=== PATIENT | female | born 1950 | race American Indian/Alaskan Native ===

== ENCOUNTER 2018-06-07 15:28 | Emergency (ER) | payer MEDICARE ==
[2018-06-07 15:35] VITALS: BMI 27.3
--- NOTE | 2018-06-07 15:52 | ED PDOC ---
Arrival/HPI - General Historian: Patient - General Chief Complaint: Psychiatric Evaluation Time Seen by Provider: 06/07/18 15:32 - History of Present Illness Narrative History of Present Illness (Text): 06/07/18 15:58 68yo female with pmhx of schizophrenia bib EMS for psychiatric evaluation. Per the EMS the called because patient is having worsening auditory hallucination. Patient in ED denies auditory/visual hallucination, SI/HI, any somatic complaint. (Toño Grimm) Past Medical History - Provider Review Nursing Documentation Reviewed: Yes - Infectious Disease Hx of Infectious Diseases: None - Tetanus Immunization Tetanus Immunization: Unknown - Cardiac Hx Hypertension: Yes - Pulmonary Hx Respiratory Disorders: No - Neurological Hx Paralysis: No - HEENT Hx HEENT Disorder: No - Renal Hx Renal Disorder: No - Endocrine/Metabolic Hx Endocrine Disorders: No - Hematological/Oncological Hx Blood Transfusions: No Hx Blood Transfusion Reaction: No - Integumentary Hx Dermatological Disorder: No - Musculoskeletal/Rheumatological Hx Musculoskeletal Disorders: No - Gastrointestinal Hx Gastrointestinal Disorders: No Hx Gastroesophageal Reflux: Yes - Genitourinary/Gynecological Hx Genitourinary Disorders: No - Psychiatric Hx Anxiety: Yes Hx Physical Abuse: No Hx Schizophrenia: Yes Hx Substance Use: No - Surgical History Hx Hysterectomy: Yes - Anesthesia Hx Anesthesia: No Hx Anesthesia Reactions: No Hx Malignant Hyperthermia: No - Suicidal Assessment Feels Threatened In Home Enviroment: No Family/Social History - Physician Review Nursing Documentation Reviewed: Yes Family/Social History: Unknown Family HX Smoking Status: Never Smoked Hx Alcohol Use: No Hx Substance Use: No Hx Substance Use Treatment: No Allergies/Home Meds Allergies/Adverse Reactions: Allergies piroxicam Adverse Reaction (Severe, Verified 06/28/16 16:00) ANAPHYLAXIS Review of Systems - Physician Review All systems were reviewed & negative as marked: Yes - Review of Systems Constitutional: Normal Eyes: Normal ENT: Normal Respiratory: Normal Cardiovascular: Normal Gastrointestinal: Normal Genitourinary Female: Normal Musculoskeletal: Normal Skin: Normal Neurological: Normal Endocrine: Normal Hemo/Lymphatic: Normal Psychiatric: Other (Hallucination) Physical Exam Vital Signs Reviewed: Yes Temperature: Afebrile Blood Pressure: Normal Pulse: Regular Respiratory Rate: Normal Appearance: Positive for: Well-Appearing, Non-Toxic, Comfortable Pain Distress: None Mental Status: Positive for: Alert and Oriented X 3 - Systems Exam Head: Present: Atraumatic, Normocephalic Pupils: Present: PERRL Extroacular Muscles: Present: EOMI Conjunctiva: Present: Normal Mouth: Present: Moist Mucous Membranes Neck: Present: Normal Range of Motion Respiratory/Chest: Present: Clear to Auscultation, Good Air Exchange. No: Respiratory Distress, Accessory Muscle Use Cardiovascular: Present: Regular Rate and Rhythm, Normal S1, S2. No: Murmurs Abdomen: No: Tenderness, Distention, Peritoneal Signs Back: Present: Normal Inspection Upper Extremity: Present: Normal Inspection. No: Cyanosis, Edema Lower Extremity: Present: Normal Inspection. No: Edema Neurological: Present: GCS=15, CN II-XII Intact, Speech Normal Skin: Present: Warm, Dry, Normal Color. No: Rashes Psychiatric: Present: Alert, Oriented x 3, Normal Insight, Normal Concentration Vital Signs Temp Pulse Resp BP Pulse Ox 06/07/18 21:15 98.7 F 87 16 122/67 98 06/07/18 19:05 81 16 128/71 99 06/07/18 16:56 98.6 F 86 18 125/76 98 Medical Decision Making ED Course and Treatment: 06/08/18 00:34 PT was comfortable in ED. She denied SI/HI or any somatic complaint in ED. Lab was unremarkable. she had leukocytes in her UA, but asymptomatic. she was medically cleared in ED for psych evaluation. She was seen in ED by DENNIS Wang. She DC with the psychiatrist and DC pt home for outpt f/u. (Toño Grimm) 06/10/18 11:01 I received a call from Microbiology that patient has a positive urine culture. ESBL+ E.Coli that is sensitive to Macrobid. I called the cell phone listed for the patient but it was not the patient's cell number. I called her son Ned Jaramillo who is listed. He states he takes care of his mom and she doesn't have a phone. She agreed that he be his mlt. She has no allergies to abx. Macrobid 500mg BID x 5 days called into [facility] [place] [phone]. Son Ned will pick it up [phone]. (Jose Antonio Higuera) - Lab Interpretations Microbiology Results: Microbiology Results 06/07/18 19:30 Urine,Clean Catch Urine Culture - Preliminary Escherichia Coli Lab Results: 06/07/18 16:04 06/07/18 16:04 Lab Results 06/07/18 18:58: Urine Opiates Screen Negative, Urine Methadone Screen Negative, Ur Barbiturates Screen Negative, Ur Phencyclidine Scrn Negative, Ur Amphetamines Screen Negative, U Benzodiazepines Scrn Negative, U Oth Cocaine Metabols Negative, U Cannabinoids Screen Negative 06/07/18 17:55: Urine Color Yellow, Urine Appearance Clear, Urine pH 8.0, Ur Specific [place] 1.015, Urine Protein Negative, Urine Glucose (UA) Negative, Urine Ketones Negative, Urine Blood Negative, Urine Nitrate Negative, Urine Bilirubin Negative, Urine Urobilinogen 0.2, Ur Leukocyte Esterase Moderate H, Urine RBC 0 - 2, Urine WBC 15 - 20, Ur Epithelial Cells 4 - 5, Urine Bacteria Many, Urine Other Uyeast 06/07/18 16:04: Alcohol, Quantitative < 10 06/07/18 16:04: Salicylates < 1 L, Acetaminophen < 10.0 L 06/07/18 16:04: Sodium 144, Potassium 4.2, Chloride 105, Carbon Dioxide 29, Anion Gap 15, BUN 14, Creatinine 0.7, Est GFR ( Amer) > 60, Est GFR (Non- Af Amer) > 60, Random Glucose 91, Calcium 9.5, Magnesium 2.3 H, Total Bilirubin 0.5, AST 24, ALT 24, Alkaline Phosphatase 100, Total Protein 8.1, Albumin 4.3, Globulin 3.8, Albumin/Globulin Ratio 1.1 06/07/18 16:04: WBC 8.2 D, RBC 4.24, Hgb 11.1 L, Hct 35.0 L, MCV 82.5, MCH 26.2 , MCHC 31.7, RDW 14.9 H, Plt Count 205, MPV 9.8, Gran % 67.2, Lymph % (Auto) 26.0, Logan % (Auto) 4.9, Eos % (Auto) 1.7, Baso % (Auto) 0.2, Gran # 5.48, Lymph # (Auto) 2.1, Logan # (Auto) 0.4, Eos # (Auto) 0.1, Baso # (Auto) 0.02 - RAD Interpretation Radiology Orders: 06/07/18 15:39 CHEST PORTABLE [RAD] Stat Disposition/Present on Arrival - Present on Arrival Any Indicators Present on Arrival: No History of DVT/PE: No History of Uncontrolled Diabetes: No Urinary Catheter: No History of Decub. Ulcer: No History Surgical Site Infection Following: None - Disposition Have Diagnosis and Disposition been Completed?: Yes Disposition Time: 19:30 Patient Plan: Discharge - Disposition Diagnosis: Hallucination Disposition: HOME/ ROUTINE Condition: STABLE Additional Instructions: Follow up with your doctor Return to ED for any new or worsening symptoms Referrals: [facility]] - Follow up with primary Forms: [employer] (Czech)
[2018-06-07 16:08] LABS: BASO # 0.02 K/mm3 (0.0-2.0); BASO % 0.2 % (0.0-3.0); EOS # 0.1 (0.0-0.7); EOS % 1.7 % (1.5-5.0); GRAN # 5.48 (1.4-6.5); GRAN % 67.2 % (50.0-68.0); HEMOGLOBIN 11.1 g/dL (12.0-16.0); LYMPH # 2.1 (1.2-3.4); MEAN CELL VOLUME 82.5 fl (80.0-105.0); MEAN CORPUSCULAR HEMOGLOBIN 26.2 pg (25.0-35.0); MEAN CORPUSCULAR HGB CONC 31.7 g/dl (31.0-37.0); MEAN PLATELET VOLUME 9.8 fl (7.0-11.0); MONO # 0.4 (0.1-0.6); MONO % 4.9 % (1.0-6.0); RBC 4.24 10^6/uL (3.5-6.1); RED CELL DISTRIBUTION WIDTH 14.9 % (11.5-14.5); WHITE BLOOD COUNT 8.2 10^3/ul (4.5-11.0)
--- NOTE | 2018-06-07 16:15 | RAD ---
Date of service: 06/07/2018 HISTORY: admission COMPARISON: 08/01/2016 FINDINGS: LUNGS: No active pulmonary disease. PLEURA: No significant pleural effusion identified, no pneumothorax apparent. CARDIOVASCULAR: Normal. OSSEOUS STRUCTURES: No significant abnormalities. VISUALIZED UPPER ABDOMEN: Normal. OTHER FINDINGS: None. IMPRESSION: No active disease.
[2018-06-07 16:18] LABS: ALB/GLOB RATIO 1.1 (1.1-1.8); ALBUMIN 4.3 g/dL (3.0-4.8); ALT/SGPT 24 U/L (7-56); AST/SGOT 24 U/L (14-36); BLOOD UREA NITROGEN 14 mg/dL (7-21); CALCIUM 9.5 mg/dL (8.4-10.5); GFR AFRICAN-AMERICAN > 60; GFR NON-AFRICAN AMERICAN > 60
[2018-06-07 16:23] LABS: ACETAMINOPHEN < 10.0 ug/ml (10.0-20.0); SALICYLATE < 1 mg/dL (2.0-20.0)
[2018-06-07 18:37] LABS: URINE BILIRUBIN NEGATIVE (NEGATIVE); URINE BLOOD NEGATIVE (NEGATIVE); URINE COLOR YELLOW (YELLOW); URINE GLUCOSE (UA) NEGATIVE (NEGATIVE); URINE LEUKOCYTE ESTERASE MODERATE Leu/uL (NEGATIVE); URINE PROTEIN NEGATIVE mg/dL (<30 mg/dL); URINE UROBILINOGEN 0.2 E.U./dL (<1 E.U./dL)
[2018-06-07 18:38] LABS: URINE APPEARANCE CLEAR (CLEAR)
[2018-06-07 18:57] LABS: URINE BACTERIA MANY (NEG); URINE RBC 0 - 2 /hpf (0-2); URINE WBC 15 - 20 /hpf (0-6)
[2018-06-07 19:44] LABS: BARBITURATES, UR NEGATIVE (NEGATIVE); BENZODIAZEPINES, UR NEGATIVE (NEGATIVE); OPIATES, UR NEGATIVE (NEGATIVE); PHENCYCLIDINE, UR NEGATIVE (NEGATIVE)
[2018-06-07 20:06] VITALS: RESP 16
[2018-06-07 23:18] VITALS: BP 122/67; PULSE 87; TEMP 98.7; O2SAT 98
--- NOTE | 2018-06-08 09:08 | CARD ---
APPROVED REPORT Date of service: 06/07/2018 EKG Measurement Heart [id number] <Conclusion> Normal sinus rhythm Voltage criteria for left ventricular hypertrophy Abnormal ECG
== END 2018-06-07 21:15 | disposition home or self-care (01) ==
LOC: ED 15:28
DX: R44.3 Hallucinations, unspecified (principal); F20.9 Schizophrenia, unspecified; I10 Essential (primary) hypertension
CPT/HCPCS: 71045; 80053; 81001; 83735; 85025; 87086; 93005; 99283; G0480

== ENCOUNTER 2018-08-13 17:08 | Emergency (ER) | payer MEDICARE ==
--- NOTE | 2018-08-13 17:26 | ED PDOC ---
Arrival/HPI - General Historian: Patient, EMS - History of Present Illness Narrative History of Present Illness (Text): 08/13/18 17:17 68 y/o female, pmh including htn/hld/gerd/anemia/demantia, psychiatric history including schizophrenia, allergic to piroxicam, on aspirin, last tetanus doesn't remember, post menopausal, biba with the son Ned on the side c/o fall about 2 hours ago. Pt. was walking out side, fall on the face and forehead, landed on the rt. elbow, no LOC, son called the ambulance and to have the patient evaluated. Pt. has been eating and drinking well, no change in energy level, no night sweat, no dizziness, no numbness or tingling, no chest pain/shortness of breath, no night sweat, or any other medical or psychological complaints. Pt. has history of UTI back in the 06/2018 and calf pain on and off for 1 month, the son and the patient would like to be evaluated for DVT and UTI as well. <Umberto Brady - Last Filed: 08/13/18 22:19> <Cecille Dudley - Last Filed: 08/15/18 13:24> - General Time Seen by Provider: 08/13/18 17:15 Past Medical History - Provider Review Nursing Documentation Reviewed: Yes - Infectious Disease Hx of Infectious Diseases: None - Tetanus Immunization Tetanus Immunization: Unknown - Cardiac Hx Hypertension: Yes - Pulmonary Hx Respiratory Disorders: No - Neurological Hx Paralysis: No - HEENT Hx HEENT Disorder: No - Renal Hx Renal Disorder: No - Endocrine/Metabolic Hx Endocrine Disorders: No - Hematological/Oncological Hx Blood Transfusions: No Hx Blood Transfusion Reaction: No - Integumentary Hx Dermatological Disorder: No - Musculoskeletal/Rheumatological Hx Musculoskeletal Disorders: No - Gastrointestinal Hx Gastrointestinal Disorders: No Hx Gastroesophageal Reflux: Yes - Genitourinary/Gynecological Hx Genitourinary Disorders: No - Psychiatric Hx Anxiety: Yes Hx Physical Abuse: No Hx Schizophrenia: Yes Hx Substance Use: No - Surgical History Hx Hysterectomy: Yes - Anesthesia Hx Anesthesia: No Hx Anesthesia Reactions: No Hx Malignant Hyperthermia: No - Suicidal Assessment Feels Threatened In Home Enviroment: No <Umberto Brady - Last Filed: 08/13/18 22:19> Family/Social History - Physician Review Nursing Documentation Reviewed: Yes Family/Social History: Unknown Family HX Smoking Status: Never Smoked Hx Alcohol Use: No Hx Substance Use: No Hx Substance Use Treatment: No <BradyUmberto Pantoja - Last Filed: 08/13/18 22:19> Allergies/Home Meds <CaitlynUmberto Kit - Last Filed: 08/13/18 22:19> <Cecille Dudley - Last Filed: 08/15/18 13:24> Allergies/Adverse Reactions: Allergies piroxicam Adverse Reaction (Severe, Verified 06/28/16 16:00) ANAPHYLAXIS Review of Systems - Review of Systems Constitutional: absent: Fatigue, Fevers Eyes: absent: Vision Changes ENT: absent: Hearing Changes Respiratory: absent: SOB, Cough Cardiovascular: absent: Chest Pain Gastrointestinal: absent: Abdominal Pain, Nausea, Vomiting Musculoskeletal: Arthralgias, Myalgias. absent: Back Pain, Neck Pain, Joint Swelling Skin: Other (+abrasion). absent: Rash, Pruritis, Ulcer, Cellulitis Neurological: absent: Headache, Dizziness Hemo/Lymphatic: absent: Adenopathy, Easy Bleeding Psychiatric: absent: Anxiety, Depression <CaitlynUmberto Pantoja - Last Filed: 08/13/18 22:19> Physical Exam - Systems Exam Head: Present: Atraumatic, Normocephalic, Tenderness (rt. lateral frontal forehea), Abrasion (rt. lateral frontal forehead approx. 1cm diameter abrasion), Other (Facial: +ttp and mild ecchymosis on the nasal bridge region with no abrasion/laceration. ). No: Ecchymosis, Laceration Pupils: Present: PERRL Extroacular Muscles: Present: EOMI Conjunctiva: Present: Normal Ears: Present: NORMAL TM, Normal Canal. No: Erythema Mouth: Present: Moist Mucous Membranes, Normal Lips, Normal Tounge, Normal Teeth Pharnyx: No: ERYTHEMA, EXUDATE, TONSILS ENLARGED Nose (External): Present: Contusion. No: Laceration, Lesions Nose (Internal): Present: Normal Inspection, No Active Bleeding. No: Edematous, Septal Deviation, Septal Hematoma, Epistaxis Neck: Present: Normal Range of Motion, Trachea Midline. No: Meningeal Signs, MIDLINE TENDERNESS, Paraspinal Tenderness, Lymphadenopathy Respiratory/Chest: Present: Clear to Auscultation, Good Air Exchange. No: Respiratory Distress, Accessory Muscle Use Cardiovascular: Present: Regular Rate and Rhythm, Normal S1, S2. No: Murmurs Abdomen: No: Tenderness, Distention, Peritoneal Signs, Rebound, Guarding Back: Present: Normal Inspection, Other (LS spine: mild +ttp on the rt. paraspinal muscle region, no midline tenderness or step off, FROM without limitation, sensation intact, motor 5/5. ). No: CVA Tenderness, Midline Tenderness, Paraspinal Tenderness, Pain with Leg Raise, Decubitus Ulcer Upper Extremity: Present: Normal Inspection, Normal ROM, Neurovascularly Intact, Capillary Refill < 2s, Other (RUE: +ttp with visible abrasion [id number] noted on lateral aspect of elbow, mild abrasion on the rt. lateral wrist region but with no tenderness or swelling (pt. not complaining or expressing any pain/discomfort), no other tenderness/swelling/deformity, no scaphoid te nderness, FROM without limitation, sensation intact, motor 5/5, +radial pulse. ). No: Cyanosis, Edema, Deformity Lower Extremity: Present: Normal Inspection, NORMAL PULSES, Normal ROM, Neurovascularly Intact, Capillary Refill < 2 s. No: Edema, CALF TENDERNESS, Stephanie's Sign, Tenderness, Swelling, Deformity, Temperature Abnormalties Neurological: Present: GCS=15, CN II-XII Intact, Speech Normal, Motor Func Grossly Intact, Memory Normal Skin: Present: Warm, Dry, Normal Color. No: Rashes Psychiatric: Present: Alert, Oriented x 3, Normal Insight, Normal Concentration <Umberto Brady Q - Last Filed: 08/13/18 22:19> Vital Signs Temp Pulse Resp BP Pulse Ox 08/13/18 22:30 98.3 F 60 18 160/65 H 100 08/13/18 20:11 98.3 F 53 L 18 167/77 H 100 08/13/18 18:13 98.3 F 56 L 18 179/95 H 100 <Cecille Dudley A - Last Filed: 08/15/18 13:24> Medical Decision Making ED Course and Treatment: 08/13/18 17:33 Differential: mechanical fall vs. ICH vs. facial bone fracture vs. extremity fracture vs. DVT vs. UTI -CT head/facial -Rt. elbow and LS spine xray -Bilateral LE venuous doppler -UA -Tdap/tylenol -Observe and reassess 08/13/18 22:14 -CT Head: No acute intracranial abnormalities. -CT facial: show Diffuse facial as well as right forehead swelling.Deformity of both nasal bones consistent with age indeterminate trauma. Bilateral ethmoid sinusitis. -LS spine xray wet read show no fracture or subluxation but there is degenerative changes. -Rt. elbow xray: no acute fracture or dislocation. -Bilateral LE Venuous doppler: as per preliminary report, no acute DVT -UA show +UTI, reviewed the urine culture, sensitive to macrobid -Wound irrigated with normal saline, clean with betadine, bacitracin and gauze dressing. -All labs and radiology results discussed with the patient and son, BP improved but explained she would need to see pmd for medication adjustment. -Discharge home with augmentin, afrin spray, macrobid, tylenol, bacitracin oinment, onofre wrap, sling, avoid blowing or picking the nose, follow up with your own pmd and ENT/orthopedic within 2 days, return to the ER for any new or worsening signs or symptoms. - RAD Interpretation Narrative RAD Interpretations (Text): 08/13/18 19:40 Radiology Orders: -CT Head CT of head reviewed by radiologist, shows: FINDINGS: BRAIN: No acute intraparenchymal hemorrhage. No mass lesion. No CT evidence for acute territorial infarct. No midline shift or extra-axial collections. Mild bilateral basal ganglia calcification noted. VENTRICLES: Unremarkable. No hydrocephalus. ORBITS: The orbits are unremarkable. SINUSES AND MASTOIDS : The paranasal sinuses and mastoid air cells are clear. BONES: No fracture. IMPRESSION: No acute intracranial abnormalities. -CT facial CT Maxillofacial reviewed by radiologist, shows: FINDINGS: BONES: Deformity of both nasal bones consistent with age indeterminate trauma. SOFT TISSUES: Diffuse facial as well as right forehead swelling. SINUSES: Bilateral ethmoid sinusitis. ORBITS: The orbits are normal. No retrobulbar hematoma or mass. IMPRESSION: 1. Diffuse facial as well as right forehead swelling. 2. Deformity of both nasal bones consistent with age indeterminate trauma. 3. Bilateral ethmoid sinusitis. -LS spine xray -Rt. elbow xray -Bilateral LE Venuous doppler: as per preliminary report, no acute DVT Lane Attendant: Radiologist <Umberto Brady Q - Last Filed: 08/13/18 22:19> - Lab Interpretations Lab Results: Lab Results 08/13/18 19:20: Urine Color Yellow, Urine Appearance Clear, Urine pH 6.0, Ur Specific [place] 1.010, Urine Protein Negative, Urine Glucose (UA) Negative, Urine Ketones Negative, Urine Blood Negative, Urine Nitrate Negative, Urine Bilirubin Negative, Urine Urobilinogen 0.2, Ur Leukocyte Esterase Small H, Urine RBC 0 - 2, Urine WBC 5 - 10, Ur Epithelial Cells 4 - 5, Urine Bacteria Small - RAD Interpretation Radiology Orders: 08/13/18 17:36 HEAD W/O CONTRAST [CT] Stat MAXILLOFACIAL W/O CONTRAST [CT] Stat ELBOW RIGHT 3 VIEWS ROUTINE [RAD] Stat LS SPINE WITH OBL > 18 YRS OLD [RAD] Stat DUPLEX LOWER EXTRM VEIN BILAT [US] Stat - Medication Orders Current Medication Orders: Discontinued Medications Acetaminophen (Tylenol 325mg Tab) 650 mg PO STAT STA Stop: 08/13/18 17:37 Last Admin: 08/13/18 17:57 Dose: 650 mg MAR Pain/Vitals Document 08/13/18 17:57 OCS (Rec: 08/13/18 17:57 OCS [facility]) Pain Reassessment Is This A Pain ReAssessment? No Sleep Is patient sleeping during reassessment? No Presence of Pain Presence of Pain Yes Pain Scale Used Protocol: PSCALES Pain Scale Used Numeric Location Pain Location Body Site Nose Description Constant Intensity 10 Scale Used Numeric Pain Behavior Facial Grimacing Aggravating Factors ADL's Nitrofurantoin Macrocrystals (Macrobid) 100 mg PO STAT STA; Protocol Stop: 08/13/18 20:05 Last Admin: 08/13/18 20:36 Dose: 100 mg Tetanus/Reduced Diphtheria/Acell Pertussis (Boostrix Vaccine Inj) 0.5 ml IM .ONCE ONE Stop: 08/13/18 17:37 Last Admin: 08/13/18 17:57 Dose: 0.5 ml Immunization Registry Document 08/13/18 17:57 OCS (Rec: 08/13/18 17:57 OCS [facility]) [facility] [place]-Date provided 08/13/18 <Cecille Dudley - Last Filed: 08/15/18 13:24> - PA / ARABIC TRANSLATOR / Resident Statement CORINNA has reviewed & agrees with the documentation as recorded. <Umberto Brady - Last Filed: 08/13/18 22:19> - PA / ARABIC TRANSLATOR / Resident Statement / has reviewed & agrees with the documentation as recorded. <Cecille Dudley - Last Filed: 08/15/18 13:24> Disposition/Present on Arrival - Present on Arrival Any Indicators Present on Arrival: No History of DVT/PE: No History of Uncontrolled Diabetes: No Urinary Catheter: No History of Decub. Ulcer: No History Surgical Site Infection Following: None - Disposition Have Diagnosis and Disposition been Completed?: Yes Disposition Time: :23 Patient Plan: Discharge <Umberto Brady Kit - Last Filed: 08/13/18 22:19> <Cecille Dudley - Last Filed: 08/15/18 13:24> - Disposition Diagnosis: Fall, Abrasion, Contusion, Arthralgia, Myalgia, UTI (urinary tract infection), Sinusitis, Nasal fracture Disposition: HOME/ ROUTINE Condition: IMPROVED Additional Instructions: -Discharge home with augmentin, afrin spray, macrobid, tylenol, bacitracin oinment, onofre wrap, sling, avoid blowing or picking the nose, follow up with your own pmd and ENT/orthopedic within 2 days, return to the ER for any new or worsening signs or symptoms. Prescriptions: Acetaminophen [Tylenol] 2 cap PO QID PRN #30 capsule PRN Reason: Other Amoxicillin/Clavulanate [Augmentin 875 MG-125 MG] 1 tab PO BID #14 tab RX: Bacitracin OINT 1 applic TP BID #15 g Nitrofurantoin Macrocrystals [Macrobid] 100 mg PO BID #14 cap Oxymetazoline 0.05% [Oxymetazoline HCl 30 Ml] 2 spray NS BID #1 bottle Referrals: Carlos Land MD [Primary Care Provider] - Follow up with primary Juan Carlos Colon DO [[facility]] - Follow up with primary Matt Lewis MD [Staff Provider] - Follow up with primary Forms: WORK NOTE
[2018-08-13 17:32] VITALS: BMI 29.0
[2018-08-13] MEDS ORDERED: TDAP Vaccine 0.5 mL Syr IM ONE (17:36)
[2018-08-13 18:21] VITALS: RESP 18; TEMP 98.3; O2SAT 100
[2018-08-13 19:50] LABS: URINE BILIRUBIN NEGATIVE (NEGATIVE); URINE BLOOD NEGATIVE (NEGATIVE); URINE GLUCOSE (UA) NEGATIVE (NEGATIVE); URINE LEUKOCYTE ESTERASE SMALL Leu/uL (NEGATIVE); URINE PROTEIN NEGATIVE mg/dL (<30 mg/dL); URINE UROBILINOGEN 0.2 E.U./dL (<1 E.U./dL)
[2018-08-13 19:51] LABS: URINE APPEARANCE CLEAR (CLEAR); URINE COLOR YELLOW (YELLOW)
[2018-08-13 19:55] LABS: URINE RBC 0 - 2 /hpf (0-2)
[2018-08-13 19:56] LABS: URINE BACTERIA SMALL (NEG)
[2018-08-13 23:16] VITALS: BP 160/65; PULSE 60
--- NOTE | 2018-08-14 08:16 | CT ---
Date of service: 08/13/2018 PROCEDURE: CT HEAD WITHOUT CONTRAST. HISTORY: fall, on aspirin, r/o bleed COMPARISON: 08/03/2016 TECHNIQUE: Axial computed tomography images were obtained through the head/brain without intravenous contrast. Supplemental Coronal and Sagittal projections created and reviewed. Radiation dose: Total exam DLP = 985.50 mGy-cm. This CT exam was performed using one or more of the following dose reduction techniques: Automated exposure control, adjustment of the mA and/or kV according to patient size, and/or use of iterative reconstruction technique. FINDINGS: HEMORRHAGE: No intracranial hemorrhage. BRAIN: No mass effect or edema. No atrophy or chronic microvascular ischemic changes. VENTRICLES: Unremarkable. No hydrocephalus. CALVARIUM: Unremarkable. PARANASAL SINUSES: Unremarkable as visualized. No significant inflammatory changes. MASTOID AIR CELLS: Unremarkable as visualized. No inflammatory changes. OTHER FINDINGS: Right frontal soft tissue contusion without underlying calvarial or intracranial abnormality IMPRESSION: No acute intracranial abnormalities. No significant findings to account for the clinical presentation. No significant interval change compared to the prior examination(s). Concordant results (preliminary interpretation) provided by [facility]. Procedure Completed: 19:03. Preliminary Report: Dictated and Authenticated: 19:16. Final Interpretation: 08:11. August 14, 2018
--- NOTE | 2018-08-14 08:26 | CT ---
Date of service: 08/13/2018 PROCEDURE: CT MAXILLOFACIAL BONES WITHOUT CONTRAST HISTORY: fall, nasal injury, r/o fracture COMPARISON: None available. TECHNIQUE: Contiguous axial CT images of the maxillofacial bones were obtained. Coronal and sagittal reformats were generated. Radiation dose: Total exam DLP = 706.96 mGy-cm. This CT exam was performed using one or more of the following dose reduction techniques: Automated exposure control, adjustment of the mA and/or kV according to patient size, and/or use of iterative reconstruction technique. FINDINGS: NASAL BONES: No visible/acute nasal bone fractures. ORBITS: Unremarkable. PARANASAL SINUSES/ MASTOIDS: No evidence of acute sinusitis. MAXILLA: Unremarkable. MANDIBLE/ TEMPOROMANDIBULAR JOINTS: Unremarkable. SKULL BASE: Unremarkable. TEMPORAL BONES: Middle ears and mastoid grossly unremarkable. OTHER FINDINGS: Facial soft tissue swelling primarily about the nose. Right supraorbital scalp contusion. No underlying calvarial or intracranial abnormalities detected. IMPRESSION: Facial soft tissue injury. No evidence of acute fracture or other acute pathologic process. Concordant results (preliminary interpretation) provided by [facility]. Procedure Completed: 19:05 Preliminary Report: Dictated and Authenticated: 22:41. Final Interpretation: 08:22.
--- NOTE | 2018-08-14 08:33 | RAD ---
Date of service: 08/13/2018 PROCEDURE: Radiographs of the right elbow. HISTORY: fall, r/o fracture COMPARISON: No prior. FINDINGS: BONES: No acute fracture. JOINTS: Degenerative/posttraumatic changes identified SOFT TISSUES: Normal. JOINT EFFUSION: None. OTHER FINDINGS: None. IMPRESSION: No acute findings related to/accounting for the clinical presentation. Additional benign and/or incidental findings described above. Concordant results with the preliminary interpretation rendered by the emergency department physician procedure.
--- NOTE | 2018-08-14 08:34 | RAD ---
Date of service: 08/13/2018 PROCEDURE: Radiographs of the Lumbar Spine. HISTORY: r/o fracture, fall COMPARISON: No prior. FINDINGS: BONES: Osteopenia. No fractures identified. DISC SPACES: Mild multilevel disc degenerative change. OTHER FINDINGS: Calcified nonaneurysmal abdominal aorta. IMPRESSION: No acute findings related to/accounting for the clinical presentation. Additional benign and/or incidental findings described above. Concordant results with the preliminary interpretation rendered by the emergency department physician procedure.
--- NOTE | 2018-08-14 11:16 | US ---
HISTORY: Leg pain and swelling. Evaluate for DVT PHYSICIAN(S): Geovany Mackay MD. TECHNIQUE: Duplex sonography and color-flow Doppler with graded compression were used to evaluate the deep venous systems of both lower extremities. FINDINGS: The visualized deep venous systems of both lower extremities are sonographically normal and compressible. Normal wave forms and augmentation are seen. There is no sonographic evidence for deep venous thrombosis in the visualized segments of both lower extremities. IMPRESSION: No sonographic evidence for deep venous thrombosis in the visualized segments of both lower extremities.
== END 2018-08-13 22:30 | disposition home or self-care (01) ==
LOC: ED 17:08
DX: S02.2XXA Fracture of nasal bones, initial encounter for closed fracture (principal); S00.81XA Abrasion of other part of head, initial encounter; S50.311A Abrasion of right elbow, initial encounter; W18.30XA Fall on same level, unspecified, initial encounter; Y93.01 Activity, walking, marching and hiking; N39.0 Urinary tract infection, site not specified; M79.10 Myalgia, unspecified site; J32.2 Chronic ethmoidal sinusitis; E78.5 Hyperlipidemia, unspecified; I10 Essential (primary) hypertension; F20.9 Schizophrenia, unspecified; M25.50 Pain in unspecified joint; Z23 Encounter for immunization

== ENCOUNTER 2018-08-19 10:48 | Emergency (ER) | payer MEDICARE ==
[2018-08-19 10:48] VITALS: BMI 27.3
[2018-08-19 11:32] VITALS: RESP 18
[2018-08-19 12:59] LABS: BASO # 0.02 K/mm3 (0.0-2.0); BASO % 0.3 % (0.0-3.0); EOS # 0.2 (0.0-0.7); EOS % 2.2 % (1.5-5.0); GRAN # 5.19 (1.4-6.5); GRAN % 67.6 % (50.0-68.0); HEMOGLOBIN 11.3 g/dL (12.0-16.0); LYMPH # 1.7 (1.2-3.4); LYMPH % 22.6 % (22.0-35.0); MEAN CORPUSCULAR HGB CONC 31.7 g/dl (31.0-37.0); MEAN PLATELET VOLUME 10.3 fl (7.0-11.0); MONO # 0.6 (0.1-0.6); MONO % 7.3 % (1.0-6.0); RBC 4.19 10^6/uL (3.5-6.1); RED CELL DISTRIBUTION WIDTH 14.8 % (11.5-14.5); WHITE BLOOD COUNT 7.7 10^3/ul (4.5-11.0)
[2018-08-19 13:10] LABS: ACETAMINOPHEN < 10.0 ug/ml (10.0-20.0); ALB/GLOB RATIO 1.1 (1.1-1.8); ALBUMIN 4.2 g/dL (3.0-4.8); ALT/SGPT 19 U/L (7-56); AST/SGOT 25 U/L (14-36); BLOOD UREA NITROGEN 16 mg/dL (7-21); CALCIUM 9.5 mg/dL (8.4-10.5); GFR NON-AFRICAN AMERICAN > 60; SALICYLATE < 1 mg/dL (2.0-20.0)
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
[2018-08-19 14:22] VITALS: PULSE 60; TEMP 97.8; O2SAT 100
[2018-08-19 15:08] VITALS: BP 167/93
--- NOTE | 2018-08-19 15:09 | CARD ---
APPROVED REPORT Date of service: 08/19/2018 EKG Measurement Heart [id number] [id number] <Conclusion> Normal sinus rhythm Voltage criteria for left ventricular hypertrophy Abnormal ECG
== END 2018-08-19 15:09 | disposition home or self-care (01) ==
LOC: ED 10:48
DX: F20.9 Schizophrenia, unspecified (principal); F22 Delusional disorders
CPT/HCPCS: 80053; 83735; 85025; 90791; 93005; 99283; G0480